=== PATIENT | female | born 1965 | race Caucasian/White ===

== ENCOUNTER 2021-04-04 05:22 | Emergency (ER) | payer MEDICAID, MEDICARE ==
[~2021-04-04] VITALS: Ht 170.2 cm; Wt 59.1 kg
[~2021-04-04 05:22] MED LIST: ALBU8.5H17 IH; CYCL5TAB PO; DIPH-423 PO; FLUT1DIS4 INH; HYDR-3965 PO; IBUP-1984 PO; LIDO700A5 TP; METH4TAB17 PO; METO-539 PO; NICO-687 TP; VALA10002 PO; VENL75TA4 PO; ZOLP5TAB2 PO
[2021-04-04 07:08] VITALS: BP 155/95
[2021-04-04 08:04] LABS: BASOPHILS % (AUTO) 0.7 % (0-1); EOSINOPHILS # (AUTO) 0.1 X10'3 (0-0.9); EOSINOPHILS % (AUTO) 1.6 % (0-6); HEMOGLOBIN 14.3 g/dl (12.0-16.0); LYMPHOCYTES % (AUTO) 38.9 % (21-51); MEAN CORPUSCULAR HEMOGLOBIN 30.7 PG (27.0-31.0); MEAN CORPUSCULAR VOLUME 90.2 FL (78-98); MEAN PLATELET VOLUME 7.8 FL (7.4-10.4); MONOCYTES # (AUTO) 0.8 X10'3 (0-0.9); MONOCYTES % (AUTO) 15.7 % (2-12); NEUTROPHILS # (AUTO) 2.3 X10'3 (1.8-7.7); NEUTROPHILS % (AUTO) 43.1 % (42-75); PLATELET COUNT 209 X10'3 (140-440); RED BLOOD COUNT 4.66 X10'6 (4.20-5.60); RED CELL DISTRIBUTION WIDTH 13.6 % (11.5-14.5); WHITE BLOOD COUNT 5.2 X10'3 (4.5-11.0)
[2021-04-04 08:20] LABS: ALBUMIN 3.9 G/DL (3.4-5.0); ANION GAP 7 (8-16); BLOOD UREA NITROGEN 9 MG/DL (7-18); BUN/CREATININE RATIO 13.8 (6.6-38.0); CALCIUM 8.5 MG/DL (8.5-10.1); CHLORIDE 102 MMOL/L (99-107); CREATININE 0.65 MG/DL (0.40-0.90); GLUCOSE 95 MG/DL (70-104); SODIUM 135 MMOL/L (135-145); TOTAL CARBON DIOXIDE 26.1 MMOL/L (24-32); eGFR > 90 ML/MIN
[2021-04-04 08:33] LABS: POTASSIUM 4.4 MMOL/L (3.5-5.1)
[2021-04-04] MEDS ORDERED: NIRM1TAB PO (08:58)
[2021-04-04] MEDS ORDERED: DEXA6TAB6 PO (08:58)
--- NOTE | 2021-04-04 09:05 | NUR ---
Pt given and understands d/c instructions. Ambulatory with a steady gait.
[2021-04-04 13:10] LABS: TOTAL CELLS COUNTED 100
[2021-04-04 13:11] LABS: PLATELET ESTIMATE NORMAL
== END 2021-04-04 09:05 | disposition home or self-care (01) ==
LOC: ER 05:23
DX: U07.1 COVID-19 (principal); R06.02 Shortness of breath; R05.9 Cough, unspecified; I10 Essential (primary) hypertension; G89.29 Other chronic pain; Z72.89 Other problems related to lifestyle; Z98.890 Other specified postprocedural states; Z79.2 Long term (current) use of antibiotics; Z79.899 Other long term (current) drug therapy
CPT/HCPCS: 71045; 80048; 84484; 85007; 85025; 87635; 93005; 99285; C9803

== ENCOUNTER 2021-06-04 22:33 | Emergency (ER) | payer MEDICARE ==
[~2021-06-04] VITALS: Ht 170.2 cm; Wt 63.6 kg
[~2021-06-04 22:33] MED LIST changes: +DEXA6TAB6 PO; +NIRM1TAB PO
[2021-06-04] MEDS ORDERED: morphine 4 MG/ML inj SYRINge IV ONE (23:10)
[2021-06-04] MEDS ORDERED: ondansetron/PF 4mg/2ml inj IV ONE (23:10)
[2021-06-04] MEDS ORDERED: normal saline 1000ml 1,000 ML IV ONE (23:10)
[2021-06-04 23:23] LABS: BASOPHILS % (AUTO) 0.4 % (0-1); EOSINOPHILS # (AUTO) 0.2 X10'3 (0-0.9); EOSINOPHILS % (AUTO) 2.3 % (0-6); HEMATOCRIT 41.8 % (35.0-45.0); HEMOGLOBIN 13.9 g/dl (12.0-16.0); LYMPHOCYTES # (AUTO) 4.1 X10'3 (1.1-4.8); LYMPHOCYTES % (AUTO) 42.9 % (21-51); MEAN CORPUSCULAR HEMOGLOBIN 30.1 PG (27.0-31.0); MEAN CORPUSCULAR HGB CONC 33.2 g/dL (33.0-36.5); MEAN CORPUSCULAR VOLUME 90.6 FL (78-98); MEAN PLATELET VOLUME 7.2 FL (7.4-10.4); MONOCYTES # (AUTO) 0.9 X10'3 (0-0.9); MONOCYTES % (AUTO) 9.2 % (2-12); NEUTROPHILS # (AUTO) 4.3 X10'3 (1.8-7.7); NEUTROPHILS % (AUTO) 45.2 % (42-75); PLATELET COUNT 291 X10'3 (140-440); RED BLOOD COUNT 4.62 X10'6 (4.20-5.60); RED CELL DISTRIBUTION WIDTH 13.6 % (11.5-14.5); WHITE BLOOD COUNT 9.5 X10'3 (4.5-11.0)
[2021-06-04 23:38] LABS: ALANINE AMINOTRANSFERASE 18 U/L (12-78); ALBUMIN 3.6 G/DL (3.4-5.0); ALKALINE PHOSPHATASE 67 IU/L (46-116); ANION GAP 13 (8-16); ASPARTATE AMINO TRANSFERASE 15 U/L (10-37); BILIRUBIN,TOTAL 0.3 MG/DL (0.1-1.0); BLOOD UREA NITROGEN 8 MG/DL (7-18); BUN/CREATININE RATIO 15.7 (6.6-38.0); CALCIUM 8.6 MG/DL (8.5-10.1); CHLORIDE 100 MMOL/L (99-107); CREATININE 0.51 MG/DL (0.40-0.90); ETHANOL 0.257 GM/DL (0.0-0.010); GLUCOSE 90 MG/DL (70-104); LIPASE 152 U/L (73-393); POTASSIUM 4.1 MMOL/L (3.5-5.1); SODIUM 136 MMOL/L (135-145); TOTAL CARBON DIOXIDE 23.3 MMOL/L (24-32); TOTAL PROTEIN 7.3 G/DL (6.4-8.2); eGFR > 90 ML/MIN
[2021-06-05] MEDS ORDERED: amox tr/potassium clavulanate 875/125mg TAB PO ONE (00:20)
[2021-06-05] MEDS ORDERED: normal saline 1000ml 1,000 ML IV ONE (00:20)
[2021-06-05 01:17] LABS: URINE HCG NEGATIVE (NEG)
[2021-06-05 01:23] LABS: URINE AMPHETAMINE SCREEN NEGATIVE (Neg); URINE BARBITUATE SCREEN NEGATIVE (Neg); URINE BENZODIAZEPINES SCREEN NEGATIVE (Neg); URINE CANNABINOID SCREEN NEGATIVE (Neg); URINE COCAINE SCREEN NEGATIVE (Neg); URINE METHADONE SCREEN NEGATIVE (Neg); URINE OPIATE SCREEN POSITIVE (Neg); URINE PHENCYCLIDINE SCREEN NEGATIVE (Neg)
[2021-06-05 01:25] LABS: CLARITY,URINE CLEAR (Clear); GLUCOSE, URINE NEGATIVE (Neg); KETONES,URINE NEGATIVE (Neg); LEUKOCYTE ESTERASE ,URINE NEGATIVE (Neg); NITRITES, URINE NEGATIVE (Neg); OCCULT BLOOD,URINE TRACE-INTACT (Neg); PH,URINE 6.5 (4.8-8.0); PROTEIN,URINE NEGATIVE (Neg); UROBILINOGEN,URINE 0.2 E.U/dL (0.2-1.0)
[2021-06-05 01:38] LABS: COLOR,URINE STRAW (Yellow); UA COLLECTION TYPE CLN CATCH MIDSTREAM
[2021-06-05 01:40] LABS: BACTERIA,URINE NONE SEEN /HPF (Neg); MUCUS STRANDS NONE SEEN /LPF (Neg); RBC,URINE 0-2 /HPF (0-2); SQUAMOUS EPITHELIAL CELL,UR FEW /LPF (FEW); WBC,URINE 0-4 /HPF (0-4)
[2021-06-05] MEDS ORDERED: AMOX-117 PO (01:50)
[2021-06-05 02:07] VITALS: BP 120/78
== END 2021-06-05 02:10 | disposition home or self-care (01) ==
LOC: ER 22:34
DX: K57.92 Diverticulitis of intestine, part unspecified, without perforation or abscess without bleeding (principal); M54.2 Cervicalgia; M54.89 Other dorsalgia; R19.7 Diarrhea, unspecified; R10.84 Generalized abdominal pain; K59.00 Constipation, unspecified; I10 Essential (primary) hypertension; G89.29 Other chronic pain; Z98.890 Other specified postprocedural states; Z72.89 Other problems related to lifestyle; Z88.8 Allergy status to other drugs, medicaments and biological substances; Z79.2 Long term (current) use of antibiotics; Z79.899 Other long term (current) drug therapy
CPT/HCPCS: 36415; 72125; 72128; 72131; 74176; 80053; 80305; 80320; 81001; 81025; 83690; 85025; 85651; 96361; 96374; 96375; 99284; J2270; J2405; J7030

== ENCOUNTER → 2021-11-22 | Day surgery (SDC) | payer MEDICARE ==
[2021-11-18 12:28] LABS: BASOPHILS % (AUTO) 0.4 % (0-1); EOSINOPHILS # (AUTO) 0.1 X10'3 (0-0.9); LYMPHOCYTES # (AUTO) 2.8 X10'3 (1.1-4.8); LYMPHOCYTES % (AUTO) 32.6 % (21-51); MEAN CORPUSCULAR HEMOGLOBIN 30.9 PG (27.0-31.0); MEAN CORPUSCULAR HGB CONC 33.8 g/dL (33.0-36.5); MEAN CORPUSCULAR VOLUME 91.5 FL (78-98); MEAN PLATELET VOLUME 7.3 FL (7.4-10.4); MONOCYTES # (AUTO) 0.7 X10'3 (0-0.9); MONOCYTES % (AUTO) 8.3 % (2-12); NEUTROPHILS % (AUTO) 57.7 % (42-75); PRE OP HEMATOCRIT 40.4 % (35.0-45.0); PRE OP HEMOGLOBIN 13.7 g/dL (12.0-16.0); PRE OP PLATELET COUNT 249 X10'3 (140-440); RED BLOOD COUNT 4.42 X10'6 (4.20-5.60); RED CELL DISTRIBUTION WIDTH 13.6 % (11.5-14.5)
[2021-11-18 12:37] LABS: ALBUMIN/GLOBULIN RATIO 1.2 (1.1-1.5); ALKALINE PHOSPHATASE 59 IU/L (46-116); BLOOD UREA NITROGEN 13 MG/DL (7-18); BUN/CREATININE RATIO 18.3 (6.6-38.0); CALCIUM 8.9 MG/DL (8.5-10.1); CHLORIDE 102 MMOL/L (99-107); CREATININE 0.71 MG/DL (0.40-0.90); PRE OP ALT 19 U/L (30-65); PRE OP ANION GAP 10 (8-16); PRE OP AST 15 U/L (10-37); PRE OP BILIRUB, TOTAL 0.2 MG/DL (0.0-1.0); PRE OP GLUCOSE 94 MG/DL (70-104); PRE OP POTASSIUM 3.9 MMOL/L (3.4-5.1); PRE OP SODIUM 137 MMOL/L (135-145); TOTAL CARBON DIOXIDE 25.3 MMOL/L (24-32); TOTAL PROTEIN 7.3 G/DL (6.4-8.2); eGFR 85 ML/MIN
[~2021-11-22] VITALS: Ht 170.2 cm; Wt 63.5 kg
[2021-11-22] VITALS (9 sets, daily range): BP systolic 111–164; BP diastolic 72–107
[~2021-11-22] MED LIST changes: +ACET-1025 PO; -ALBU8.5H17 IH; +BIOT1CAP3 PO; +BUPIVAcaine/PF 2.5mg/ml (0.25%) 10ml vial ONE; +CALC-336 PO; +CYCL-1 PO; -DEXA6TAB6 PO; -DIPH-423 PO; +ERGO400C PO; -FLUT1DIS4 INH; -HYDR-3965 PO; -IBUP-1984 PO; +LEVO112T39 PO; -LIDO700A5 TP; +LIDOcaine 2% (20mg/ml) 5ml vial ONE; -METH4TAB17 PO; -METO-539 PO; -NICO-687 TP; -NIRM1TAB PO; -VALA10002 PO; -VENL75TA4 PO; +VITA-268 PO; -ZOLP5TAB2 PO; +acetaminophen 1,000mg/100ml IV 100 ML IV ONE; +acetaminophen 1,000mg/100ml IV 100 ML IV PRN; +albuterol 2.5 MG/3 ML nebule NEB PRN; +dexamethasone sod phosphate 4mg/ml inj. ONE; +famotidine 20mg tablet PO ONE; +fentaNYL /PF 50mcg/ml 5ml ampule ONE; +glycopyrrolate 0.2mg/ml inj ONE; +hydrALAZINE 20mg/ml inj. IV PRN; +ketorolac trometh. 30mg/ml inj. IV ONE; +ketorolac trometh. 30mg/ml inj. ONE; +labetalol 20mg/4ml (5mg/ml) syringe IV PRN; +meperidine/PF 25mg/ml syringe IV PRN; +midazolam 1 mg/ML 2ml injection ONE; +morphine 2 MG/ML inj. syringe IV PRN; +morphine 4 MG/ML inj SYRINge ONE; +neostigmine methylsulfate 1 MG/ML 10ml vial ONE; +ondansetron/PF 4mg/2ml inj IV PRN; +ondansetron/PF 4mg/2ml inj ONE; +oxyCODONE/APAP 10/325mg tablet PO STA; +proCHLORperazine 10 MG/2 ml inj IV PRN; +propofol inj 20 ML IV ONE; +ringers solution, lacted 1,000 ML IV SCH; +rocuronium 10mg/ml inj IV ONE; +sevoflurane 250ml liquid IH ONE
--- NOTE | 2021-11-22 09:20 | NUR ---
Received from OR via [facility] , accompanied by Anesthesiologist LAURA and report given by Anesthesiolgist. PATIENT SITTING UP, NAUSEATED, C.O. PAIN. MEDICATED WITH ZOFRAN. PHARMACY HAS NOT VERIFIED MEDS. PATIENT WITH 3 LAP SITES TO ABDOMEN THAT ARE CDI AND GLUED. NO DRESSINGS AND NO DRAINAGE PRESENT. Addendum: 11/22/21 at 0935 by Jasper Turner RN, RN Amended: Links added.
[2021-11-22] MEDS: morphine 4 MG/ML inj SYRINge IV PRN ×2 (09:41→10:09)
--- NOTE | 2021-11-22 10:40 | NUR ---
ALL DISCHARGE CRITERIA HAS BEEN MET. VSS, PAIN AT A TOLERABLE LEVEL, ABLE TO SAFELY AMBULATE AND TRANSFER SELF. IV TAKEN OUT WITHOUT ANY COMPLICATIONS. ALL DISCHARGE INSTRUCTIONS COVERED WITH PATIENT AND ALL QUESTIONS ANSWERED. PATIENT TAKEN OUT VIA WHEELCHAIR TO PERSONAL VEHICLE WHERE FRIEND DROVE PATIENT HOME. Addendum: 11/22/21 at 1105 by Jasper Turner RN, RN Amended: Links added.
== END | disposition home or self-care (01) ==
LOC: PAS 05:27
PROVIDERS: ATTEND Obstetrics & Gynecology
DX: N83.201 Unspecified ovarian cyst, right side (principal); F17.210 Nicotine dependence, cigarettes, uncomplicated; Z79.899 Other long term (current) drug therapy; Z20.822 Contact with and (suspected) exposure to COVID-19; Z98.890 Other specified postprocedural states
CPT/HCPCS: 36415; 58661; 80053; 82948; 85025; 86885; 86900; 86901; 87811; 93005; J0131; J1100; J1885; J2250; J2270; J2405; J2704; J2710; J3010; J3490; J7030; J7120; Z7506; Z7508; Z7512; A4618

== ENCOUNTER → 2022-12-22 | Emergency (ER) | payer MEDICARE ==
[~2022-12-22] VITALS: Ht 170.2 cm; Wt 62.3 kg
[~2022-12-22] MED LIST changes: -BUPIVAcaine/PF 2.5mg/ml (0.25%) 10ml vial ONE; -CYCL5TAB PO; +HYDROcodone/acetaminophen 5mg/325mg tablet PO ONE; -LIDOcaine 2% (20mg/ml) 5ml vial ONE; +NAPR-56 PO; -acetaminophen 1,000mg/100ml IV 100 ML IV ONE; -acetaminophen 1,000mg/100ml IV 100 ML IV PRN; -albuterol 2.5 MG/3 ML nebule NEB PRN; -dexamethasone sod phosphate 4mg/ml inj. ONE; -famotidine 20mg tablet PO ONE; -fentaNYL /PF 50mcg/ml 5ml ampule ONE; -glycopyrrolate 0.2mg/ml inj ONE; -hydrALAZINE 20mg/ml inj. IV PRN; -ketorolac trometh. 30mg/ml inj. IV ONE; -ketorolac trometh. 30mg/ml inj. ONE; -labetalol 20mg/4ml (5mg/ml) syringe IV PRN; -meperidine/PF 25mg/ml syringe IV PRN; -midazolam 1 mg/ML 2ml injection ONE; -morphine 2 MG/ML inj. syringe IV PRN; -morphine 4 MG/ML inj SYRINge ONE; -neostigmine methylsulfate 1 MG/ML 10ml vial ONE; -ondansetron/PF 4mg/2ml inj IV PRN; -ondansetron/PF 4mg/2ml inj ONE; -oxyCODONE/APAP 10/325mg tablet PO STA; -proCHLORperazine 10 MG/2 ml inj IV PRN; -propofol inj 20 ML IV ONE; -ringers solution, lacted 1,000 ML IV SCH; -rocuronium 10mg/ml inj IV ONE; -sevoflurane 250ml liquid IH ONE
[2022-12-22 15:30] VITALS: TEMP 97.8
--- NOTE | 2022-12-22 17:11 | NUR ---
MATERIAL DAMAGE ADJUSTER GENERAL ASSESSMENT REVIEWED BY ARACELI RNC CS; APPROVED
[2022-12-22 17:24] VITALS: BP 167/98; PULSE 81; RESP 18; O2SAT 95
== END | disposition home or self-care (01) ==
LOC: ER 15:03
DX: S46.911A Strain of unspecified muscle, fascia and tendon at shoulder and upper arm level, right arm, initial encounter (principal); X58.XXXA Exposure to other specified factors, initial encounter; Y93.89 Activity, other specified; Y92.89 Other specified places as the place of occurrence of the external cause; Y99.8 Other external cause status
CPT/HCPCS: 73030; 99283